=== PATIENT | male | born 1960 | race Caucasian/White ===

== ENCOUNTER 2020-07-27 08:01 | Outpatient (REF) | payer BC, SELFPAY ==
[2020-07-27 11:32] LABS: Hematocrit 46.5 % (42-52); Hemoglobin 16.3 g/dl (14.0-18.0); Mean Corpuscular HGB Conc 35.1 g/dl (31.0-36.0); Mean Corpuscular Hemoglobin 33.4 pg (27.0-33.0); Mean Corpuscular Volume 95.3 fL (80-98); Mean Platelet Volume 10.5 fL (9.4-12.4); Platelet Count 189 X10*3/uL (160-400); Red Blood Count 4.88 X10*6/uL (4.60-5.80); White Blood Count 4.8 X10*3/uL (4.8-10.8)
[2020-07-27 12:00] LABS: Alanine Aminotransferase 31 U/L (0-40); Alkaline Phosphatase 91 U/L (39-117); Anion Gap 15 (12-20); Aspartate Amino Transferase 19 U/L (5-37); Bilirubin Total 1.4 mg/dL (0.0-1.0); Blood Urea Nitrogen 18 mg/dL (9-16); Carbon Dioxide 26 mmol/L (22-29); Chloride 102 mmol/L (96-108); Cholesterol 136 mg/dL; Estimated Glomerular Filt Rate > 60; Glucose Fasting 104 mg/dL (60-99); HDL Cholesterol 35 mg/dL; LDL Cholesterol Calculated 72 mg/dl; Potassium 4.1 mmol/L (3.3-5.1); Sodium 139 mmol/L (135-145); Total Protein 7.7 g/dL (6.5-8.0); Triglycerides 149 mg/dL
[2020-07-27 12:21] LABS: Prostate Specific Antigen 0.54 ng/mL (<0.05-4.0)
[2020-07-30 08:03] LABS: ~HepC Num1 0.07 S/CO (0.00-0.79); ~Hepatitis C Antibody Nonreactive (Nonreactive)
== END 2020-07-27 08:02 | disposition home or self-care (01) ==
LOC: HO.MANLDS 08:01
PROVIDERS: PCP Internal Medicine; Visit Provider Internal Medicine
DX: Z12.5 Encounter for screening for malignant neoplasm of prostate (principal); Z01.84 Encounter for antibody response examination; I10 Essential (primary) hypertension
CPT/HCPCS: 36415; 80053; 80061; 84153; 85027; 86803

== ENCOUNTER 2021-10-01 08:47 | Outpatient (REF) | payer BC, SELFPAY ==
[2021-10-01 11:34] LABS: MANUAL DIFF FLAG NO
[2021-10-01 12:03] LABS: Basophils Percent Auto 0.4 % (0-2); Eosinophils Percent Auto 0.2 % (0-4); Hematocrit 43.5 % (42.0-52.0); Hemoglobin 15.3 g/dl (14.0-18.0); Imm Gran Abs Auto 0.04 X10*3/uL (0.00-0.03); Imm Gran Pct Auto 0.9 % (0.0-0.4); Lymphocytes Absolute Auto 1.9 X10*3/uL (1.2-4.9); Lymphocytes Percent Auto 40.5 % (20-40); Mean Corpuscular HGB Conc 35.2 g/dl (31.0-36.0); Mean Corpuscular Hemoglobin 33.3 pg (27.0-33.0); Mean Corpuscular Volume 94.8 fL (80.0-98.0); Mean Platelet Volume 10.7 fL (9.4-12.4); Monocytes Absolute Auto 0.6 X10*3/uL (0.1-1.2); Monocytes Percent Auto 13.4 % (2-11); Neutrophils Absolute Auto 2.1 x10*3/uL (2.0-8.3); Neutrophils Percent Auto 44.6 % (45-73); Platelet Count 177 X10*3/uL (160-400); Red Blood Count 4.59 X10*6/uL (4.60-5.80); Red Cell Distribution Width 12.5 % (11.0-16.0); White Blood Count 4.6 X10*3/uL (4.8-10.8)
[2021-10-01 12:17] LABS: Alanine Aminotransferase 33 U/L (0-40); Albumin Level 4.7 g/dL (3.5-5.0); Alkaline Phosphatase 87 U/L (39-117); Anion Gap 13 (12-20); Aspartate Amino Transferase 20 U/L (5-37); Bilirubin Total 1.3 mg/dL (0.0-1.0); Blood Urea Nitrogen 15 mg/dL (9-16); Calcium 9.5 mg/dL (8.4-10.2); Carbon Dioxide 28 mmol/L (22-29); Chloride 103 mmol/L (96-108); Cholesterol 136 mg/dL; Estimated Glomerular Filt Rate > 60; Glucose Random 113 mg/dL (60-115); HDL Cholesterol 33 mg/dL; LDL Cholesterol Calculated 65 mg/dl; Sodium 140 mmol/L (135-145); Total Protein 7.4 g/dL (6.5-8.0); Triglycerides 194 mg/dL
[2021-10-01 12:31] LABS: Prostate Specific Antigen 0.41 ng/mL (<0.05-4.0); Vitamin D 25-OH Total 21.1 ng/mL (>30)
== END 2021-10-01 08:48 | disposition home or self-care (01) ==
LOC: HO.MANLDS 08:47
PROVIDERS: Visit Provider Internal Medicine
DX: I10 Essential (primary) hypertension (principal); Z12.5 Encounter for screening for malignant neoplasm of prostate
CPT/HCPCS: 36415; 80053; 80061; 82306; 84153; 85025

== ENCOUNTER 2024-05-13 11:34 | Outpatient (REF) | payer BC, SELFPAY ==
--- OUTSIDE RECORDS SUMMARY | 2024-05-13 12:36 | XMS_ITS | Data Portability ---
Author Organization [facility] Home Service Address [address] [place] [address] Assessment Encounter Date Assessment Date Assessment LastModified by Organization Details LastModified Time 02/17/2022 02/17/2022 [id number] [place] [id number] (RETAIL DISTRICT MANAGER) MDM MODERATE MUST MEET 2 OUT OF 3 ELEMENTS: PROBLEMS, DATA OR RISK ELEMENT 1: PROBLEMS ADDRESSED 1 OR MORE CHRONIC ILLNESS WITH EXACERBATION OR 2 OR MORE STABLE CHRONIC ILLNESSES OR 1 UNDIAGNOSED NEW PROBLEM OR 1 ACUTE ILLNESS W/SYMPTOMS OR 1 ACUTE COMPLICATED INJURY ELEMENT 2: DATA MUST MEET 1 OF 3 CATEGORIES CATEGORY 1: REVIEW OF PRIOR EXTERNAL NOTES, REVIEW OF RESULTS, ORDERING OF EACH TEST, ASSESSMENT REQUIRING INDEPENDENT HISTORIAN OR CATEGORY 2: INDEPENDENT INTERPRETATION OF TESTS BY ANOTHER PHYSICIAN OR SPECIALIST OR CATEGORY 3: DISCUSSION OF MGT OR TEST INTERPRETATION W/EXTERNAL PHYSICIAN OR SPECIALIST ELEMENT 3: RISK RISK OF COMPLICATIONS AND/OR MORBIDITY OR MORTALITY OF PATIENT MANAGEMENT PROVIDER MUST THOROUGHLY DOCUMENT EACH ELEMENT THAT IS COVERED Not available 02/17/2022 10:28:45 08/06/2022 08/06/2022 [id number] [place] [id number] (RETAIL DISTRICT MANAGER) : MDM LOW MUST MEET 2 OF 3 ELEMENTS: PROBLEMS, DATA OR RISK ELEMENT 1: PROBLEMS ADDRESSED (LOW): 2 OR MORE SELF-LIMITED OR MINOR PROBLEMS OR 1 STABLE CHRONIC ILLNESS OR 1 ACUTE UNCOMPLICATED ILLNESS OR INJURY ELEMENT 2: DATA TO BE REVISED AND ANALYZED (LOW) MUST MEET 1 OF 2 CATEGORIES: CATEGORY 1. REVIEW OF PRIOR EXTERNAL NOTES/RESULTS, ORDERING OF TEST(S) CATEGORY 2. ASSESSMENT REQUIRING INDEPENDENT HISTORIAN(S) INCLUDE WHO THE HISTORIAN IS AND RELATION TO PT AND WHY PT IS UNABLE TO GIVE COMPLETE HISTORY ELEMENT 3: RISK (LOW) RISK OF COMPLICATIONS AND/OR MORBIDITY OR MORTALITY OF PATIENT MANAGEMENT PROVIDER MUST THOROUGHLY DOCUMENT ALL OF THE ELEMENTS COVERED Not available 08/06/2022 09:35:13 02/23/2023 02/23/2023 [id number] [place] [id number] (RETAIL DISTRICT MANAGER) : MDM LOW MUST MEET 2 OF 3 ELEMENTS: PROBLEMS, DATA OR RISK ELEMENT 1: PROBLEMS ADDRESSED (LOW): 2 OR MORE SELF-LIMITED OR MINOR PROBLEMS OR 1 STABLE CHRONIC ILLNESS OR 1 ACUTE UNCOMPLICATED ILLNESS OR INJURY ELEMENT 2: DATA TO BE REVISED AND ANALYZED (LOW) MUST MEET 1 OF 2 CATEGORIES: CATEGORY 1. REVIEW OF PRIOR EXTERNAL NOTES/RESULTS, ORDERING OF TEST(S) CATEGORY 2. ASSESSMENT REQUIRING INDEPENDENT HISTORIAN(S) INCLUDE WHO THE HISTORIAN IS AND RELATION TO PT AND WHY PT IS UNABLE TO GIVE COMPLETE HISTORY ELEMENT 3: RISK (LOW) RISK OF COMPLICATIONS AND/OR MORBIDITY OR MORTALITY OF PATIENT MANAGEMENT PROVIDER MUST THOROUGHLY DOCUMENT ALL OF THE ELEMENTS COVERED Not available 02/23/2023 10:04:24 09/14/2023 09/14/2023 [id number] [place] [id number] (RETAIL DISTRICT MANAGER) MDM MODERATE MUST MEET 2 OUT OF 3 ELEMENTS: PROBLEMS, DATA OR RISK ELEMENT 1: PROBLEMS ADDRESSED 1 OR MORE CHRONIC ILLNESS WITH EXACERBATION OR 2 OR MORE STABLE CHRONIC ILLNESSES OR 1 UNDIAGNOSED NEW PROBLEM OR 1 ACUTE ILLNESS W/SYMPTOMS OR 1 ACUTE COMPLICATED INJURY ELEMENT 2: DATA MUST MEET 1 OF 3 CATEGORIES CATEGORY 1: REVIEW OF PRIOR EXTERNAL NOTES, REVIEW OF RESULTS, ORDERING OF EACH TEST, ASSESSMENT REQUIRING INDEPENDENT HISTORIAN OR CATEGORY 2: INDEPENDENT INTERPRETATION OF TESTS BY ANOTHER PHYSICIAN OR SPECIALIST OR CATEGORY 3: DISCUSSION OF MGT OR TEST INTERPRETATION W/EXTERNAL PHYSICIAN OR SPECIALIST ELEMENT 3: RISK RISK OF COMPLICATIONS AND/OR MORBIDITY OR MORTALITY OF PATIENT MANAGEMENT PROVIDER MUST THOROUGHLY DOCUMENT EACH ELEMENT THAT IS COVERED Not available 09/14/2023 10:26:23 05/13/2024 05/13/2024 [id number] [place] [id number] (RETAIL DISTRICT MANAGER) MDM HIGH MUST MEET 2 OUT OF 3 ELEMENTS: PROBLEMS, DATA OR RISK ELEMENT 1: PROBLEMS 1 OR MORE CHRONIC ILLNESS W/SEVERE EXACERBATION, PROGRESSION MAY REQUIRE HOSPITAL LEVEL CARE OR 1 ACUTE OR CHRONIC ILLNESS OR INJURY THAT POSES A THREAT TO LIFE OR BODILY FUNCTION ELEMENT 2: DATA: MUST MEET 2 OF 3 CATEGORIES CATEGORY 1 REVIEW OF PRIOR EXTERNAL NOTES REVIEW OF THE RESULTS ORDERING OF EACH TEST ASSESSMENT REQUIRING INDEPENDENT HISTORIAN(S) CATEGORY 2: INDEPENDENT INTERPRETATION OF TESTS BY ANOTHER PROVIDER/SPECIALI ST CATEGORY 3: DISCUSSION OF MGT OR TEST INTERPRETATION W/EXTERNAL PHYSICIAN/SPECIAL IST ELEMENT 3: RISK HIGH RISK OF MORBIDITY FROM ADDITIONAL DIAGNOSTIC TESTING OR TREATMENT PROVIDER MUST THOROUGHLY DOCUMENT EACH ELEMENT THAT IS COVERED The patient presented to their appointment today for multiple concerns requiring moderate to high-level decision making and took over 40-45 minutes for an adequate and appropriate history, exam, assessment and treatment plan. This appointment was done with an established patient. Not available 05/13/2024 11:27:15 Plan of Treatment Reminders Order Date Submit Date Provider Last Modified By Organization Details Last Modified Time Details Appointments FOLLOW UP 15 2024 10:45A M DR MAY Not available Not available Not available MEDICARE ANNUAL WELLNESS 2024 09:00A M DR MAY Not available Not available Not available Lab lipid panel, blood 2021 022 [facility], [address] [place] [address], [id number], 02/17/2022 10:35:20 CMP, serum or plasma 2023 024 [facility], [address] [place] [address], [id number], 09/14/2023 10:33:22 CBC 2023 024 [facility], [address] [place] [address], [id number], 09/14/2023 10:33:23 PSA, serum or plasma 2023 024 [facility], [address] [place] [address], [id number], 11/27/2023 14:03:30 lipid panel, blood 2023 024 [facility], [address] [place] [address], [id number], 11/27/2023 15:24:32 HbA1c (hemoglob in A1c), blood 2024 025 [facility], [address] [place] [address], [id number], 05/13/2024 11:29:01 Referral None recorded. Procedures None recorded. Surgeries None recorded. Imaging None recorded. Medication Orders doxycycli ne hyclate 100 mg tablet 2021 022 [email or web address] #08368, [address], [place], [id number], 02/23/2023 09:52:31 atenolol 50 mg tablet [address] [facility]16001, [address], [place], [id number], 07/07/2023 09:23:58 atorvasta tin 40 mg tablet 2021 022 [facility] #95546, [address], [place], [id number], 02/17/2022 10:36:28 lisinopri l 40 mg tablet 2021 022 [facility] [employer] [facility] #98167, [address], [place], [id number], 02/17/2022 10:36:29 sildenafi l 100 mg tablet 2022 023 [facility] #31715, [address], [place], [id number], 08/06/2022 09:40:03 atenolol 50 mg tablet [address] [facility] #56741, [address], [place], [id number], 07/07/2023 09:23:58 atorvasta tin 40 mg tablet 2022 023 [facility] #22037, [address], [place], [id number], 08/06/2022 09:40:03 lisinopri l 40 mg tablet 2022 023 [facility] [employer] [facility] #23251, [address], [place], [id number], 08/06/2022 09:40:02 alprazola m 0.5 mg tablet 2022 023 [facility] #68154, [address], [place], [id number], 08/06/2022 09:40:04 losartan 25 mg tablet 2024 025 [facility] [employer] [facility] #14244, [address], [place], [id number], 05/13/2024 11:27:50 lorazepam 0.5 mg tablet 2024 025 [facility] [employer] [facility] #81517, [address], [place], [id number], 05/13/2024 11:27:50 Patient TargetsNo targets recorded. Patient Instructions Encounter Date Encounter Id Patient Instructions Last Modified By Organization Details Last Modified Time 02/17/2022 [id number] tick bite: care instructions Not available 02/17/2022 10:37:08 09/14/2023 [id number] premature heartbeat: care instructions Not available 09/14/2023 10:32:03 05/13/2024 [id number] learning about high blood sugar Not available 05/13/2024 11:27:45 premature heartbeat: care instructions Not available 05/13/2024 11:27:45 Reason for Referral None Reported. Results Created Date Observation Date Name Description Value Unit Range Abnormal Flag Note LastModifiedBy Organization Detail LastModifiedTime Result Notes None recorded. Problems Name Problem SNOMED Code Status Onset Date Resolution Date Notes Provider Name and Address Organization Details Recorded Time Jhoan romero [facility] [id number] Active 2017 Not Available [facility] 02:59:49 Palpation Active 2020 Not Available [employer] 02:59:49 Stress and adjustment reaction 372226443 Active 2021 Yunior May, DO [address] [place] [address], [phone], [facility] 2 11:27:18 Primary erectile dysfunctio n 320220235 Active 2021 Yunior May, DO [address] [place] [address], [phone], [facility] 2 11:31:52 Atrial dilatation 04243121 Active 2021 Yunior May DO [address] [place] [address], [address], [facility] 2 10:30:41 Acute bronchitis 69381296 Active 2023 HOLLI LANDON [address] [place] [address], [address], [facility] 4 16:45:27 Ventricula r premature complex 479068002 Active 2023 Yunior May DO [address] [place] [address], [phone], [facility] 4 10:27:57 Gilbert's syndrome 79259028 Active 2024 Yunior May DO [address] [place] [address], [address], [facility] 5 11:20:05 Hyperglyce marge 90501069 Active 2024 Yunior May DO [address] [place] [address], [address], [facility] 5 11:20:28 Hypertensi ve disorder 13162109 Active 2017 Not Available [facility] 02:59:49 Hyperchole sterolemia 73041771 Active 2017 Not Available [facility] 02:59:49 Sinus tachycardi a 30425095 Active 2017 Not Available [facility] 02:59:49 Pyelonephr itis 29376554 Active 2017 Not Available [facility] 1 02:59:49 Diastolic dysfunctio n 0549392 Active 2017 Not Available [facility] 02:59:49 Deep venous thrombosis 735046234 Active 2017 Not Available [facility] 02:59:49 Pulmonary embolism 55419387 Active 2017 Not Available [facility] 02:59:49 Problem Notes None recorded. Medical Equipment None Reported. Allergies No known drug allergies Medications Name Sig Start Date Stop Date Status Note LastModified by Organization Details LastModified Time atorvastati n 40 mg tablet TAKE 1 TABLET BY MOUTH EVERY DAY active Not Available Not Available No t Available cefuroxime axetil 250 mg tablet Take 1 tablet every 12 hours by oral route for 10 days. 01/03 completed Not Available Not Available Not Available labetalol 200 mg tablet TAKE 1 TABLET BY MOUTH TWICE DAILY 05/07 completed Not Available Not Available Not Available clindamycin HCl 300 mg capsule Take 1 capsule every 6 hours by oral route for 10 days. 11/04 completed Not Available Not Available Not Available diltiazem ER 420 mg capsule,24 hr,extended release TAKE 1 CAPSULE BY MOUTH EVERY DAY 01/11 completed Not Available Not Available Not Available sildenafil 50 mg tablet TAKE 1 TABLET BY MOUTH EVERY DAY 11/01 completed Not Available Not Available Not Available azithromyci n 250 mg tablet TAKE 2 TABLETS (500 MG) BY ORAL ROUTE ONCE DAILY FOR 1 DAY THEN 1 TABLET (250 MG) BY ORAL ROUTE ONCE DAILY FOR 4 DAYS 09/13 completed Not Available Not Available Not Available diltiazem CD 180 mg capsule,ext ended release 24 hr Take 1 capsule every day by oral route for 30 days. 05/22 completed Not Available Not Available Not Available ofloxacin 0.3 % eye drops INSTILL 1 DROP IN LEFT EYE FOUR TIMES DAILY DIRECTED 09/13 completed Not Available Not Available Not Available metoprolol tartrate 100 mg tablet TAKE 1 TABLET BY MOUTH THREE TIMES DAILY active Not Available Not Available No t Available atenolol 100 mg tablet Take 1 tablet every day by oral route. 09/13 completed Not Available Not Available Not Available valacyclovi r 1 gram tablet Take 1 tablet 3 times a day by oral route for 7 days. 05/22 completed Not Available Not Available Not Available diltiazem CD 240 mg capsule,ext ended release 24 hr Take 1 capsule every day by oral route for 30 days. 05/22 completed Not Available Not Available Not Available lisinopril 20 mg tablet TAKE 1 TABLET BY MOUTH EVERY DAY 02/17 completed Not Available Not Available Not Available fluorouraci l 5 % topical cream 02/17 completed Not Available Not Available Not Available atenolol 25 mg tablet TAKE 1 TABLET BY MOUTH EVERY DAY 09/27 completed Not Available Not Available Not Available diltiazem CD 360 mg capsule,ext ended release 24 hr TAKE 1 CAPSULE BY MOUTH EVERY DAY 12/21 completed Not Available Not Available Not Available sildenafil 100 mg tablet TAKE 1 TABLET BY MOUTH EVERY DAY active Not Available Not Available No t Available amoxicillin 500 mg tablet Take 1 tablet every 8 hours by oral route. 07/07 completed Not Available Not Available Not Available carvedilol 3.125 mg tablet TAKE 1 TABLET BY MOUTH TWICE DAILY 09/27 completed Not Available Not Available Not Available alprazolam 0.5 mg tablet TAKE 1 TABLET BY MOUTH TWICE DAILY NEEDED active Not Available Not Available No t Available lorazepam 0.5 mg tablet TAKE 1 TABLET BY MOUTH THREE TIMES DAILY FOR 10 DAYS NEEDED 2024 active Not Available Not Available Not Avai lable diltiazem CD 300 mg capsule,ext ended release 24 hr TAKE 1 CAPSULE BY MOUTH EVERY DAY 08/03 completed Not Available Not Available Not Available benzonatate 100 mg capsule active Not Available Not Available Not Available losartan 25 mg tablet Take 1 tablet every day by oral route for 30 days. 2024 active Not Available Not Available Not Avai lable flecainide 100 mg tablet TAKE 1 TABLET BY MOUTH EVERY 12 HOURS active Not Available Not Available No t Available metoprolol tartrate 50 mg tablet TAKE 1 TABLET BY MOUTH TWICE DAILY 09/27 completed Not Available Not Available Not Available aspirin 81 mg chewable tablet Chew 1 tablet every day by oral route. active OTC Not Available Not Available No t Available mupirocin 2 % topical ointment 01/03 completed Not Available Not Available Not Available methylpredn isolone 4 mg tablets in a dose pack FOLLOW PACKAGE DIRECTION S 09/13 completed Not Available Not Available Not Available albuterol sulfate HFA 90 mcg/actuati on aerosol inhaler INHALE 2 PUFFS INTO THE LUNGS EVERY 4 HOURS NEEDED FOR WHEEZING active Not Available Not Available No t Available ketoconazol e 2 % topical cream APPLY THIN LAYER TOPICALLY TO FEET TWICE DAILY DIRECTED active Not Available Not Available No t Available lisinopril 40 mg tablet TAKE 1 TABLET BY MOUTH DAILY active Not Available Not Available No t Available doxycycline hyclate 100 mg tablet TAKE 1 TABLET BY MOUTH TWICE DAILY 02/23 completed Not Available Not Available Not Available atenolol 50 mg tablet TAKE 1 TABLET BY MOUTH DAILY 07/06 completed Not Available Not Available Not Available amoxicillin 875 mg-potassiu m clavulanate 125 mg tablet Take 1 tablet every 12 hours by oral route for 10 days. 12/08 completed Not Available Not Available Not Available tobramycin 0.3 %-dexametha sone 0.1 % eye drops,suspe nsion 12/08 completed Not Available Not Available Not Available Multivitami n 50 Plus Take one tablet every day. active Not Available Not Available No t Available Glucosamine 1500 Complex Twice daily active Not Available Not Available No t Available GaviLyte-G 236 gram-22.74 gram-6.74 gram-5.86 gram oral solution 01/03 completed Not Available Not Available Not Available [facility] with Large Mask USE DIRECTED WITH INHALER active Not Available Not Available No t Available [facility] bid active Not Available Not Available Not Available Fish Oil 1,000 mg (120 mg-180 mg) capsule Take 1 capsule twice a day by oral route. active Not Available Not Available No t Available Afluria (PF) 45 mcg(15 mcg x 3)/0.5 mL intramuscul ar syringe 11/04 completed Not Available Not Available Not Available Fluarix Quad (PF) 60 mcg (15 mcg x 4)/0.5 mL IM syringe 07/07 completed Not Available Not Available Not Available Flucelvax Quad (PF) 60 mcg (15 mcg x 4)/0.5 mL IM syringe 05/22 completed Not Available Not Available Not Available Afluria Qd (36 mos up)(PF)60 mcg (15 mcg x4)/0.5 mL IM syringe ADM 0.5ML IM UTD 05/22 completed Not Available Not Available Not Available Flowflex COVID-19 Antigen Home Test kit TEST DIRECTED TODAY 09/27 completed Not Available Not Available Not Available Vitals Date Recorded Body height Body mass index (BMI) Body weight Heart rate Oxygen saturation Oxygen saturation in Arterial blood by Pulse oximetry Systolic blood pressure Diastolic blood pressure Provider Name and Address Organization Details Last Updated DateTime 2 177.8 cm 35.5 kg/m2 871636. 47 g 77 /min 97 % 97 % 150 mm[Hg] 82 mm[Hg] Yunior May, DO [address] [place], [address] [place] [address] Internal [facility] 2 10:18:05 Date Recorded Body height Body mass index (BMI) Body weight Respiratory rate Heart rate Oxygen saturation Oxygen saturation in Arterial blood by Pulse oximetry Systolic blood pressure Diastolic blood pressure Provider Name and Address Organization Details Last Updated DateTime 3 177.8 cm 35.6 kg/m2 406466. 91 g 136 /min 74 /min 95 % 95 % 136 mm[Hg] 70 mm[Hg] Cesia Deutsch [facility] 3 09:04:23 Date Recorded Body height Body mass index (BMI) Body weight Heart rate Oxygen saturation Oxygen saturation in Arterial blood by Pulse oximetry Systolic blood pressure Diastolic blood pressure Provider Name and Address Organization Details Last Updated DateTime 3 177.8 cm 35.9 kg/m2 904290. 09 g 70 /min 96 % 96 % 138 mm[Hg] 72 mm[Hg] Vibha Duran [facility] 3 09:54:22 Date Recorded Body height Body mass index (BMI) Body weight Heart rate Oxygen saturation Oxygen saturation in Arterial blood by Pulse oximetry Systolic blood pressure Diastolic blood pressure Provider Name and Address Organization Details Last Updated DateTime 4 177.8 cm 35.5 kg/m2 912698. 11 g 63 /min 95 % 95 % 148 mm[Hg] 88 mm[Hg] Mireya Milan [facility] 4 10:05:16 Date Recorded Body height Body mass index (BMI) Body weight Heart rate Oxygen saturation Oxygen saturation in Arterial blood by Pulse oximetry Systolic blood pressure Diastolic blood pressure Provider Name and Address Organization Details Last Updated DateTime 5 177.8 cm 35.4 kg/m2 778485. 32 g 60 /min 97 % 97 % 140 mm[Hg] 80 mm[Hg] Cesia Bournemond [facility] 5 10:44:25 Social History Question Answer Notes LastModified by Organizat ion Details LastModified Time Tobacco Smoking Status Never Smoker Not Available [facility] 02/07/2020 03:36:24 What Was The Date Of Your Most Recent Tobacco Screening? 05/13/2024 [email or web address] Information not available 05/13/2024 Do You Or Have You Ever Used Any Other Forms Of Tobacco Or Nicotine? No [email or web address] Information not available 02/23/2023 Sex: Unknown Functional Status None recorded. Mental Status None recorded. Family History Nothing Reported. Medical History No medical history recorded. Immunizations Vaccine Type Date Status Note Provider Nam e and Address Organization Details Recorded Time Influenza, split virus, quadrivalent, preservative 2 completed Vibha Gencarelle [facility] 02/23/2023 09:49:54 Influenza, split virus, quadrivalent, preservative 8 completed Vibha Gencarelle [facility] 02/23/2023 09:49:54 Influenza, split virus, quadrivalent, preservative 9 completed [facility] 02/23/2023 09:49:54 Influenza, split virus, quadrivalent, preservative 0 completed Vibha Gencarelle [facility] 02/23/2023 09:49:53 COVID-19, mRNA, LNP-S, PF, 30 mcg/0.3 mL dose 1 completed Vibha Gencarelle ely [facility] 02/23/2023 09:49:54 Tdap 1 completed Not Available [facility] 01/12/2021 02:59:49 COVID-19, mRNA, LNP-S, PF, 30 mcg/0.3 mL dose 1 completed Vibha Gencarelle ely [facility] 02/23/2023 09:49:54 Past Encounters Encounter ID Performer Location Encounter Start Date Encounter Closed Date Diagnosis/Indication Diagnosis SNOMED-CT Code Diagnosis ICD10 Code Diagnosis Note [id number] Yunior May [facility] [address] [facility] [address] 08/10/2017 16:11:01 08/11/2017 08:01:12 Hypertensive disorder 94157339 I10 home bp are 130 /70's which is good states exercising daily and eating correctly Hypercholesterolemia 136 64415 E78.00 will need to check cholest in 3 months in nov [id number] Yunior May [facility] [address] [facility],[place] [address] 10/23/2017 09:24:35 10/23/2017 10:29:24 Sialoadenitis 38407103 K11.20 heat sour balls hydration [id number] Yunior May [facility] [address] [facility], [place] [address] 11/04/2017 09:42:58 11/04/2017 13:40:07 Sialoadenitis of the submandibular gland 635572599 K11.20 needs referral to ent and will cont with augmentin Hypertensive disorder 38 964982 I10 home bp are 130 /70's which are still good states exercising daily and eating correctly [id number] Yunior May [facility] [address] [facility] [address],[place] [address] 12/08/2017 16:07:47 12/08/2017 17:02:32 Hypertensive disorder 97323552 I10 bp today is sl elevated but home bp are 130 /70's which are still good states exercising daily and eating correctly still and even in this heat Hypercholesterolemia 136 37586 E78.00 LDL of 85 hdl 36 trig 180 [id number] Jenifer Lema NP, [facility] Internal [facility] [address] [facility] [address] [address] 06/30/2018 09:02:37 06/30/2018 12:15:55 Hypertensive disorder 67010044 I10 Hypercholesterolemia 136 61080 E78.00 Acute left otitis media 345847496 H66.92 Sinus tachycardia 568842 01 R00.0 follow, has appt 07/07/18 [id number] Yunior May [facility] [address] [facility] [address],[place] [address] 07/07/2018 13:35:06 07/07/2018 14:14:30 Serous otitis media 44050282 H65.02 sudafed afrin h2o and cefurox [id number] Yunior May [facility] [address] [facility] [address],[place] [address] 07/14/2018 10:40:42 07/14/2018 11:04:42 Serous otitis media 44557285 H65.02 sudafed afrin h2o and cefurox to be finished in 2 days will have him redo the afrin bid for the next 4 days along with the sudafed [id number] Yunior May [facility] [address] [facility] [address],[place] [address] 01/04/2020 10:41:40 01/04/2020 11:57:46 Essential hypertension 64838846 I10 bps at home are good Anxiety 64133051 F41.9 having episodes of panic very infrequent but can be uncomforta ble will cont lorzaipam [id number] Yunior May [facility] [address] [facility] [address],[place] [address] 05/01/2020 08:39:24 05/01/2020 11:02:33 Hypertensive disorder 24963411 I10 bp today is sl elevated but home bp are 130 /70's which are still good states exercising daily and eating correctly still and even in this heat Sinus tachycardia 058730 01 R00.0 as described above believe all pvc and stress Diastolic dysfunction 35 53322 I51.9 currently being controlled with hsi lisinopril and labetolol Intermitte nt palpitations 828588349 R00.2 has been having as described we will need to increase the dose of his labetolol and then we will have it re eval in a few weeks [id number] Yunior May [facility] Internal Medicine [address] [facility], [place] [address] 05/07/2020 09:27:11 05/07/2020 13:57:27 Hypertensive disorder 04144504 I10 bp today is sl elevated but home bp are 130 /70's which are still good states exercising daily and eating correctly still and even in this heat Sinus tachycardia 433484 01 R00.0 as described above believe all pvc and stress will order monitor as well as change the labetolol to diltiazem we will rechk him after the monitor but we will hear from him later in the week with update Diastolic dysfunction 35 55513 I51.9 currently being controlled with his lisinopril but will add diltiazem at this point [place] the [place] [id number] Yunior May [facility] Internal Medicine [address] [place] [address], [place] [address] 07/02/2020 10:10:04 07/02/2020 10:45:44 Hypertensive disorder 85208386 I10 bp today is sl elevated but home bp are 130 /70's which are still good states exercising daily and eating correctly still and even in this heat Sinus tachycardia 465251 01 R00.0 as described above believe all pvc and stress will order monitor as well as increase the dose of diltiazem or030bj we will rechk him after the monitor but we will hear from him later in the week with update Diastolic dysfunction 35 57756 I51.9 currently being controlled with his lisinopril and diltiazem at this point given the [place] [id number] Yunior May [facility] Internal Medicine [address] [facility], [place] [address] 08/03/2020 11:56:11 08/03/2020 15:32:33 Hypertensive disorder 45042998 I10 has noted irregular heart beat when exercising but is overall about 80% better bp today is sl elevated but home bp are 130 /70's which are still good states exercising daily and eating correctly still and even in this heat Hypercholesterolemia 136 58287 E78.00 LDL of 85 hdl 36 trig 180 [id number] Yunior May [facility] Internal Medicine [address] [facility],[place] [address] 12/26/2020 08:29:12 12/26/2020 09:31:19 Sinus tachycardia 85897893 R00.0 Hypertensive disorder 38 932215 I10 has noted irregular heart beat r bp today is elevated but home bp are 170's which are elevated states exercising daily and eating correctly still and even in this heat is getting these symptomsdi ltiazem has failedstop diltiazem metoprolol 50 [place] [id number] Yunior May [facility] Internal Medicine [address] [place] [address] 01/01/2021 08:11:08 01/01/2021 10:13:11 Hypertensive disorder 88195165 I10 did not tolerated the metoprolol due to bradycardi a very symptomati c Sinus tachycardia 665031 01 R00.0 [id number] Yunior May DO [facility] Internal Medicine [address] [place] [address] 01/22/2021 09:08:46 01/22/2021 13:28:14 Intermittent palpitations 893698310 R00.2 he will be seeing a cardiologi st in couple weeks for considerat ion for ablation procedure Hypertensive disorder 38 827602 I10 doing great with bp and atenololno changes currently [id number] Yunior May [facility] Internal Medicine [address] [facility],[place] [address] 09/27/2021 10:55:04 09/27/2021 12:34:13 Hypertensive disorder 62564574 I10 doing great with bp and atenololno changes currently Hypercholesterolemia 136 73240 E78.00 LDL of 85 hdl 36 trig 180 Diastolic dysfunction 35 01443 I51.9 currently being controlled and no palp with atenolol 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 Primary er ectile dysfunction 333944212 N52.9 [id number] Yunior May [facility] Internal Medicine [address] [facility], [place] [address] 02/17/2022 10:12:46 02/18/2022 08:17:14 Hypertensive disorder 08470912 I10 doing great with bp and atenolol working welll with very scant palpitatio ns occuringno changes currently noted bp at home running 135/ 68 avg Hypercholesterolemia 136 63280 E78.00 LDL of 85 hdl 36 trig 180 Diastolic dysfunction 35 95161 I51.9 currently being controlled and no palp with atenolol Active or passive immunization 692192710 Z23 patient advised he is due for flu shot & shingles Renewal of prescription 679586156 Z76.0 Tick bite 95713762 W57.X XXA [id number] [facility] [address] [facility],[place] [address] 08/06/2022 08:55:56 08/06/2022 15:22:08 Hypertensive disorder 81838584 I10 doing great with bp and atenolol working welll with very scant palpitatio ns occuringno changes currentlyh e us exercising dailynoted bp at home running 135/ 68 avg Renewal of prescription 408543228 Z76.0 Primary er ectile dysfunction 612540541 N52.9 Stress and adjustment reaction 716504263 F43.9 [id number] [facility] [address] [facility],[place] [address] 02/23/2023 09:48:54 02/23/2023 10:10:38 Hypercholesterolemia 97869815 E78.00 LDL of 85 hdl 36 trig 180 Hypertensive disorder 38 859538 I10 doing great with bp and atenolol working welll with very scant palpitatio ns occuringno changes currentlyh e us exercising dailynoted bp at home running 135/ 68 avg Atrial dilatation 675928 03 I51.7 no issues [id number] Yunior May DO [facility] Internal Medicine [address] [facility] [address],[place] [address] 09/14/2023 09:48:54 09/15/2023 11:45:17 Hypertensive disorder 72170377 I10 doing great with bp and atenolol working welll with very scant palpitatio ns occuringno changes currentlyh e us exercising dailynoted bp at home running 135/ 68 avg Hypercholesterolemia 136 01661 E78.00 LDL of 85 hdl 36 trig 180 Depression screening 171 531605 Z13.31 SCREENING NEGATIVE 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 doing well but symptoms are very distractin g an d now at 15% of heart beats and will be getting an ablation by [facility] cardiology november 17 is scheduled [id number] Yunior May [facility] Internal Medicine [address] [facility] [address],[place] [address] 05/13/2024 10:34:17 05/13/2024 11:39:50 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 did not require ablation per cardiol Hyperglycemia 69349410 R 73.9 will check Hypertensive disorder 38 876551 I10 sbp is still elevated we will add losart 25 and he will get exercising and we will look to d/c this Stress and adjustment reaction 136384413 F43.9 Health Concerns Section Related Observation LastModified by Organization Detai ls LastModified Time None Recorded Concern Status LastModified by Organization Details LastModified Time None Recorded Advance Directives Directive None Recorded Payers Encounter Date Sequence Insurance Name Policy Number Policy Knott Covered Member ID Knott Member ID Guarantor Name 02/17/2022 1 [place] [facility] [place] [id number] Alton Wiley [id number] Alton Wiley 08/06/2022 1 [place] [facility] [place] [place] [id number] Alton Wiley [id number] Alton Wiley 02/23/2023 1 [place] [facility] [place] [place] [id number] Alton Wiley [id number] Alton Wiley 09/14/2023 1 [place] [employer] Alton Wiley [id number] Alton Wiley 05/13/2024 1 [place] [facility] G[place]MENT [facility] Alton Wiley [id number] Alton Wiley 05/13/2024 2 [place] [id number] Alton Wiley [id number] Alton Wiley Notes Date Note Type Note Provider Name and Address Organization Details Recorded Time 2 text/htm l here for rechk and is feeling goodrelates that he has no cpno sob bowels goodwalking daily 6/7 daysrelates works outside all dayhas been bitten by ticks and has been embedded more than 24 hrs Yunior May DO [address] [place] [address], [address], [facility] Internal Medicine 02/17/2022 10:37:28 3 text/htm l here for rechk and is feeling well no major issues notedhad gained wgt on a cruise but will get offhis bp is still doing well states that he is feeling well Yunior May DO [address] [place] [address], [address], [facility] Internal Medicine 08/06/2022 13:29:22 3 text/htm l Care Management - HypertensionReported bypatient.Self Care:not under emotional stress Severity:symptoms are improving; does not interfere with daily activities Associated Symptoms:no dizziness; no lightheadedness; no chest pain; no shortness of breath; no palpitations; no edema; no calf muscle cramps; no blurred vision; no confusion; no headaches; no fatigue here for rechk and is still doing great and he is walking dailyno cp no sobhome bps avg 136/68feels better now than he has been 10 yrs ago Yunior May DO [address] [place], [address], [facility] Internal Medicine 02/23/2023 10:10:08 4 text/htm l Care Management - HypertensionReported bypatient.Self Care:not under emotional stress Severity:symptoms are improving; does not interfere with daily activities Associated Symptoms:no dizziness; no lightheadedness; no chest pain; no shortness of breath; no palpitations; no edema; no calf muscle cramps; no blurred vision; no confusion; no headaches; no fatigue relates that he is doing ok and his holter monitor showed PVC s15% of the time and he is scheduled for an ablation due to PVC's excessive while on medication for thisrelates he is very symptomatic from thishome bp are doing ok Yunior May DO [address] [place], [address], [facility] Internal Medicine 09/14/2023 10:34:01 5 text/htm l Care Management - HypertensionReported bypatient.Self Care:not under emotional stress Severity:symptoms are improving; does not interfere with daily activities Associated Symptoms:no dizziness; no lightheadedness; no chest pain; no shortness of breath; no palpitations; no edema; no calf muscle cramps; no blurred vision; no confusion; no headaches; no fatigue her e for 6 mo check uprelates has a colonoscopy coming up as well as dermalso has a skin diver apptcardiol did not do an ablation after re eval and put him on flecanide did not anamika flecanide and place on metoprolol insteaddoing ok except sys bp is elevated Yunior May DO [address] [place], [address], [facility] Internal Medicine 05/13/2024 11:30:16
[2024-05-13 13:57] LABS: Estimated Average Glucose 117 mg/dL; Hemoglobin A1C 148.2359 umol/L; Hemoglobin A1c % 5.7 % (<6.0); Total Hemoglobin (HGBA1C) 3833.2025 umol/L
== END 2024-05-13 11:35 | disposition home or self-care (01) ==
LOC: HO.MANLDS 11:34
PROVIDERS: Visit Provider Internal Medicine
DX: R73.9 Hyperglycemia, unspecified (principal)
CPT/HCPCS: 36415; 83036

== ENCOUNTER 2024-11-30 08:47 | Outpatient (REF) | payer MEDICARE, SELFPAY ==
--- OUTSIDE RECORDS SUMMARY | 2024-11-30 09:17 | XMS_ITS | Encounter Summary ---
Author Organization [facility] Address [address] [place] [address] Phone Care Team Providers Care Marine Painter Name Role Phone DorothyYunior faulkner Chayo UMANA Primary Care Provider [phone] Encounter Details Date Type Department Care Team (Late st Contact Info) Description 05/18/2024 Procedure Pass [facility] Endoscopy Admitting Dept Virtual Department [address] [place] [address] Social History Tobacco Use Types Packs/Day Years Used Date Smoking Tobacco: Never Smokeless Tobacco: Never Alcohol Use Standard Drinks/Week Comments Not Currently 2 (1 standard drink = 0.6 oz pur e alcohol) none for 1 year Education Answer Date Recorded Are you interested in more education? Not on faizan e 08/01/2022 Are you concerned about learning? Not on file 08/01/2022 No 08/01/2022 No 08/01/2022 Digital Access Answer Date Recorded No 08/30/2022 No 08/30/2022 Reliable internet access at home? Not on file 08/30/2022 Device with a working camera? Not on file Intimate Partner Violence Answer Date R ecorded Denied Basic Needs Not on file 05/12/2024 In the past 12 months have y ou been in a relationship with a person who hurts, threatens, or tries to control you? No 05/12/2024 Worried food would run out Not on file 05/12 In the past 12 months have y ou been in a relationship with a person who hurts, threatens, or tries to control you? No 05/12/2024 Sex and Gender Information Value Date Recorded Sex Assigned at Not on file Legal Sex Male 9:50 PM EDT Gender Identity Not on file Sexual Orientation Not on file documented as of this encounter Plan of Treatment Not on file documented as of this encounter Visit Diagnoses Not on filedocumented in this encounter Care Teams Marine Painter Relationship Specialty Start Date End Date Yunior Sanchez DO [email or web address] PCP - General 01/19/17 documented as of this encounter Additional Source Comments The information contained in this document represents components of the legal health record. It is not the complete legal health record.[facility]
--- OUTSIDE RECORDS SUMMARY | 2024-11-30 09:17 | XMS_ITS | Encounter Summary ---
Author Organization [facility] Address [address] [place] [address] [place] [address] Phone Care Team Providers Care Toilet And Laundry Soap Supervisor Name Role Phone Yunior Sanchez DO Primary Care Provider [phone] Yunior Sanchez DO Unavailable Encounter Details Date Type Department Care Team (Late st Contact Info) Description 11/16/2017 Procedure Pass [facility], Ct Scan - [address] [address] Social History Tobacco Use Types Packs/Day Years Used Date Smoking Tobacco: Never Assessed Sex and Gender Information Value Date Recorded Sex Assigned at Not on file Legal Sex Male 9:50 PM EDT Gender Identity Not on file Sexual Orientation Not on file documented as of this encounter Plan of Treatment Not on file documented as of this encounter Visit Diagnoses Not on filedocumented in this encounter Additional Health Concerns Infection Onset Date Last Indicated Resolved Time CoV-Risk 04/28/2024 04/28/2024 05/09/2024 1:24 AM EST documented as of this encounter Care Teams Toilet And Laundry Soap Supervisor Relationship Specialty Start Date End Date Yunior Sanchez DO PCP - General 01/19/17 Yunior Sanchez DO [address] [place] [address] [email or web address] Insurance Assigned Provider 07/11/23 documented as of this encounter Additional Source Comments The information contained in this document represents components of the legal health record. It is not the complete legal health record.[facility]
--- OUTSIDE RECORDS SUMMARY | 2024-11-30 09:17 | XMS_ITS | Encounter Summary ---
Author Organization [facility] Address [address] [place] [address] Phone Care Team Providers Care Documentation Manager Name Role Phone Yunior Sanchez DO Primary Care Provider [phone] Yunior Sanchez DO Unavailable Encounter Details Date Type Department Care Team (Late st Contact Info) Description 05/07/2020 Procedure Pass Non-Invasive Cardiology [address] [place] [address] Social History Tobacco Use Types Packs/Day Years Used Date Smoking Tobacco: Never Smokeless Tobacco: Never Alcohol Use Standard Drinks/Week Comments Yes 2 (1 standard drink = 0.6 oz pur e alcohol) 2 MONTH Sex and Gender Information Value Date Recorded [...] documented as of this encounter Care Teams Documentation Manager Relationship Specialty Start Date End Date Yunior Sanchez DO PCP - General 01/19/17 Yunior Sanchez DO [address] [place] [address] [email or web address] Insurance Assigned Provider 07/11/23 documented as of this encounter Additional Source Comments The information contained in this document represents components of the legal health record. It is not the complete legal health record.[facility]
--- OUTSIDE RECORDS SUMMARY | 2024-11-30 09:17 | XMS_ITS | Clinical Summary ---
Author Organization [facility] Address [address] [place] [address] [place] [address] Phone Care Team Providers Care Software Test And Validation Engineer Name Role Phone DorothyShade faulkner Chayo UMANA Primary Care Provider [phone] Allergies No known active allergies Medications lisinopril (PRINIVIL,ZESTR IL) 20 MG tabletIndicatio ns:hypertension Take 20 mg by mouth daily. Indications: high blood pressure Active atorvastatin (LIPITOR) 20 MG tablet Take 20 mg by mouth daily. Active aspirin 81 MG EC tablet Take 81 mg by mouth daily. Active multivit-min/fe rrous fumarate (MULTI VITAMIN ORAL) Take by mouth daily. Active omega-3 fatty acids-fish oil 340-1,000 mg Cap Take 1 capsule by mouth 2 (two) times a day. Active glucosam/chond/ hyalu/CF borate (MOVE FREE JOINT HEALTH ORAL)Indication s:1 tab 2x a day Take by mouth 2 (two) times a day. Indications: 1 tab 2x a day Active atenolol (TENORMIN) 25 MG tablet Take 25 mg by mouth daily. Active ALPRAZolam (XANAX) 0.5 MG tablet alprazolam 0.5 mg tablet TAKE 1 TABLET BY MOUTH TWICE DAILY NEEDED Active azithromycin (ZITHROMAX Z-MICHELLE) 250 MG tablet 2 tablet on the first day, then 1 tablet daily for 4 days 1 Active cefuroxime (CEFTIN) 250 MG tablet cefuroxime axetil 250 mg tablet Active clindamycin (CLEOCIN) 300 MG capsule clindamycin HCl 300 mg capsule Active dilTIAZem (DILACOR XR) 180 mg 24 hr capsule diltiazem CD 180 mg capsule,extended release 24 hr TAKE 1 CAPSULE BY MOUTH EVERY DAY Active dilTIAZem (TIAZAC) 360 MG 24 hr capsule diltiazem CD 360 mg capsule,extended release 24 hr TAKE 1 CAPSULE BY MOUTH EVERY DAY Active dilTIAZem (DILACOR XR) 240 mg 24 hr capsule diltiazem CD 240 mg capsule,extended release 24 hr TAKE 1 CAPSULE BY MOUTH EVERY DAY Active labetaloL (TRANDATE) 200 MG tablet labetalol 200 mg tablet TAKE 1 TABLET BY MOUTH ONCE DAILY Active LORazepam (ATIVAN) 0.5 MG tablet lorazepam 0.5 mg tablet TAKE 1 TABLET BY MOUTH THREE TIMES DAILY FOR 10 DAYS NEEDED Active simvastatin (ZOCOR) 40 MG tablet Take 40 mg by mouth daily. Active flecainide (TAMBOCOR) 100 MG tablet Take 100 mg by mouth. 4 Active metoprolol tartrate (LOPRESSOR) 100 MG tablet Take 100 mg by mouth 3 (three) times a day. Active sildenafiL (VIAGRA) 100 mg tablet Take 1 tablet by mouth every morning. 4 Active albuterol (PROAIR HFA) 90 mcg/actuation inhaler Inhale 2 puffs into the lungs every 4 (four) hours as needed for wheezing. 18 g 5 Active Additional Information Patient not taking.Reported on 05/12/2024 inhaler spacing device (AEROCHAMBER,BR EATHERITE) Spcr Inhale 1 each into the lungs every 4 (four) hours as needed. 1 each 5 Active benzonatate (TESSALON) 100 MG capsule Take 2 capsules (200 mg total) by mouth 3 (three) times a day as needed for cough. 21 capsule 5 Active Additional Information Patient not taking.Reported on 05/12/2024 lisinopril (PRINIVIL,ZESTR IL) 40 MG tablet Take 40 mg by mouth daily. Active atorvastatin (LIPITOR) 40 MG tablet Take 40 mg by mouth daily. Active losartan potassium (LOSARTAN ORAL) Take by mouth. Active Active Problems No known active problems Immunizations Immunization Administration Dates Next Due COVID-19 (Pre-01/26) Pfizer Vaccine, mRNA, PF 07/05/2020,06/14/2020 INFLUENZA, SPLIT VIRUS, TRIVALENT PF 01/10/2017, 01/23/2016 Influenza High-Dose Trivalen t Preservative Free IM 01/04/2024 Influenza Quadrivalent MDCK Preservative Free IM 02/18/2023,02/16/2019 Influenza Quadrivalent Prese rvative Free IM 02/09/2022,01/04/2021,01/31/2018 Influenza Quadrivalent w/ Preservative IM 01/23/2020,02/16/2019,01/31/2018,2014,03/23/2014 Pneumococcal conjugate PCV20 02/10/2024 RSV Vaccine (monovalent, adjuvanted) 02/28/2023 Tdap 07/28/2020 Zoster recombinant 11/01/2020,08/28/2020 Social History Tobacco Use Types Packs/Day Years Used Date Smoking Tobacco: Never Smokeless Tobacco: Never Tobacco Cessation:Counseling Given: Not Answered Alcohol Use Standard Drinks/Week Comments Not Currently [...] on file Sexual Orientation Not on file Last Filed Vital Signs Vital Sign Reading Time Taken Comments Blood Pressure 105/68 05/18/2024 8:50 AM EST Pulse 69 05/18/2024 8:50 AM EST Temperature 35.8 C (96.5 F) 05/18/2024 8:39 AM EST Respiratory Rate 18 05/18/2024 8:50 AM EST Oxygen Saturation 96% 05/18/2024 8:50 AM EST Inhaled Oxygen Concentration - - Weight 111.1 kg (245 lb) 05/12/2024 9:23 AM EST Height 180.3 cm (5' 11 ) 02/21/2019 11:38 AM EST Body Mass Index 34.17 02/21/2019 11:38 AM EST Plan of Treatment Health Maintenance Due Date Last Done Comments DEPRESSION SCREENING 1970 COLOGUARD 09/10/2003 FIT TEST 09/10/2003 FOBT 09/10/2003 SIGMOIDOSCOPY 09/10/2003 VIRTUAL COLONOSCOPY 09/10/2003 COVID-19 VACCINE ( season) 2024 01/04/2024, 02/18/2023, 02/09/2022, Additional history exists INFLUENZA VACCINE (#1) 2024 , 02/18/2023, 02/09/2022, Additional history exists CREATININE LEVEL 11/26/2024 11/27/2023, 01/11/2021 POTASSIUM LEVEL 11/26/2024 11/27/2023, 01/11/2021 SCREENING FOR DIABETES 11/26/2026 11/27/2023, 2017 LIPID PANEL 11/26/2028 11/27/2023, 09/05, 10/01/2021, Additional history exists Adult Td,Tdap Booster 07/28/2030 07/28/2020 COLONOSCOPY 05/18/2034 05/18/2024, 02/28/2019 COLORECTAL CANCER SCREENING 05/18/2034 HEPATITIS C SCREENING Completed 07/27/2020 ZOSTER VACCINES Completed 11/01/2020, 08/28/2020 RSV VACCINE Completed 02/28/2023 PNEUMOCOCCAL VACCINES (50+ years) Completed 02/10/2024 SMOKING STATUS SCREENING (Once After 26 Yrs) Completed 05/18/2024 HEPATITIS A VACCINES Aged Out No long er eligible based on patient's age to complete this topic HIB VACCINES Aged Out No longer eligi ble based on patient's age to complete this topic MENINGOCOCCAL VACCINES (ACWY) Aged Out No longer eligible based on patient's age to complete this topic MENINGOCOCCAL VACCINES (B) Aged Out N o longer eligible based on patient's age to complete this topic Medical Devices Not on file Procedures Procedure Name Priority Date/Time Associated Diagnosis Comments ENDOSCOPY, COLON 05/18/2024 8:02 AM EST LIPID PANEL Routine 11/27/2023 9:39 AM EDT Essential hypertension, malignant Pure hypercholesterolemia COMPREHENSIVE METABOLIC PANEL Routine 11/27/2023 9:39 AM EDT Essential hypertension, malignant Pure hypercholesterolemia from Last 3 Months or Most Recently Relevant to Health Maintenance Results * ENDOSCOPY, COLON (05/18/2024 8:02 AM EST) Narrative Transcriptions Jerrell Mishra MD - 05/18/2024 8:02 AM EST [facility] Patient Name: Alton Wiley Attending MD:: JERRELL MISHRA MD, , Procedure Date: 05/18/2024 8:02 AM Date of : 1960 Age: 63 Admit Type: Outpatient Gender: Male Room: [facility] Referring MD: SHADE MAY DO Exam Type: Colonoscopy Indications: High risk colon cancer surveillance: Personalhistory of colonic polyps Medications: Monitored Anesthesia Care Procedure: Informed consent was obtained from the patientafter discussion of the indications, limitations, alternatives, benefits, and risks of the procedure. Risks specifically discussed include but are not limited to medication reactions, missed lesions, bleeding, perforation, or the need for emergent surgery. Throughout the procedure, the patient's blood pressure, pulse, end-tidal CO2, and oxygensaturations were monitored continuously. The Olympus adult variable colonoscope [id number] #1 was introduced through the anus and advanced to the cecum, identified by appendiceal orifice andileocecal valve. The colonoscopy was performed without difficulty. The patient tolerated the procedurewell. The quality of the bowel preparation was excellent. The quality of the bowel preparation was evaluated using the BBPS ([place] Bowel Preparation Scale)with scores of: Right Colon = 3, Transverse Colon = 3and Left Colon = 3 (entire mucosa seen well with no residual staining, small fragments of stool oropaque liquid). The total BBPS score equals 9. Anatomical landmarks were photographed. Complications: No immediate complications. Estimated blood loss: Minimal. Findings: The perianal and digital rectal examinations were normal. A 5 mm polyp was found in the sigmoid colon. Thepolyp was sessile. The polyp was removed with a coldsnare. Resection and retrieval were complete. The exam was otherwise normal throughout theexamined colon. Impression: - One 5 mm polyp in the sigmoid colon, removed witha cold snare. Resected and retrieved. Recommendation: - Discharge patient to home. - Await pathology results. - Repeat colonoscopy in 5 years for surveillance. JERRELL MISHRA MD, 05/18/2024 8:37:05 AM This report has been signed electronically. Number of Addenda: 0 Note Initiated On: 05/18/2024 8:02 AM Procedure Code(s): --- Professional --- 91508, Colonoscopy, flexible; with removal of tumor(s), polyp(s), or other lesion(s) by snare technique --- Technical --- 22709, Colonoscopy, flexible; with removal of tumor(s), polyp(s), or other lesion(s) by snare technique Diagnosis Code(s): --- Professional --- Z86.010, Personal history of colonic polyps D12.5, Benign neoplasm of sigmoid colon --- Technical --- Z86.010, Personal history of colonic polyps D12.5, Benign neoplasm of sigmoid colon CPT copyright 2021 [employer]. All rights reserved. The codes documented in this report are preliminary and upon barber stylist reviewmay be revised to meet current compliance requirements. Procedure Date: 05/18/2024 8:02:[address] [place] [address] us Shade A Bigda DO GI PROCEDURE ORDERABLES Final Re sult * (ABNORMAL) Comprehensive metabolic panel (11/27/2023 9:39 AM EDT) SODIUM 140 133 - 146 mmol/L [facility] POTASSIUM 4.2 3.3 - 5.1 mmol/L [facility] Comment:Specimen slightly he molyzed, result may be falsely elevated. CHLORIDE 100 96 - 108 mmol/L [facility] CO2 28 21 - 35 mmol/L [facility] BUN 17 6 - 19 mg/dL [facility] CREATININE 0.80 0.5 - 1.5 mg/dL [facility] GLUCOSE 111(H) 70 - 99 mg/dL [facility] ALBUMIN 4.6 3.9 - 4.8 g/dL [facility] TOTAL PROTEIN 7.8 6.5 - 8.0 g/dL [facility] CALCIUM 9.7 8.4 - 10.3 mg/dL [facility] ALKALINE PHOSPHATASE 96 39 - 117 U/L [facility] TOTAL BILIRUBIN 1.7(H) 0.0 - 1.2 mg/dL [facility] AST 24 0 - 37 U/L [facility] ALT 28 0 - 40 U/L [facility] GLOBULIN 3.2 1 - 4.8 g/dL [facility] EGFR 98 >59 mL/min/1.7 3m2 [facility] Comment:Estimated glomerular filtration rate calculated using the CKD-EPI refit equation. ANION GAP 16 10 - 20 mmol/L [facility] Blood 11/27/2023 9:39 AM EDT 11/27/2023 9:44 AM EDT us Shade A Bigda DO LAB BLOOD ORDERABLES Final Resul t Performing Organization Address City/[facility]/ZIP Co de Phone Number [address] [address] * Lipid panel (11/27/2023 9:39 AM EDT) HDL 31 mg/dL [facility] Comment: Interpretation <40 mg/dL: Low HDL cholesterol (major risk factor for CHD) Greater than or equal to 60 mg/dL: High HDL cholesterol ( negative risk factor for CHD) HDL - cholesterol is affected by a number of factors, e.g. smoking, excerise, hormones, sex and age. CHOLESTEROL 128 0 - 240 mg/dL [facility] TRIGLYCERIDES 148 30 - 160 mg/dL [facility] LDL 67 50 - 129 mg/dL [facility] Comment: LDL levels in terms of risk for coronary heart disease: <100 mg/dL: Optimal 100-129 mg/dL: Near or above optimal 130-159 mg/dL: Borderline high 160-189 mg/dL: High >190 mg/dL: Very High CARDIAC RISK RATIO 4.1 3.4 - 5.0 C [facility] Blood 11/27/2023 9:39 AM EDT 11/27/2023 9:43 AM EDT us Shade A Bigda DO LAB BLOOD ORDERABLES Final Resul t Performing Organization Address City/[facility]/ZIP Co de Phone Number [address] [phone] from Last 3 Months or Most Recently Relevant to Health Maintenance Insurance [employer] MEDEX SUPPLEMENT MEDICARE PART A & B [employer] MEDEX SUPPLEMENT MEDICARE PART A & B [employer] MEDEX SUPPLEMENT [employer] MEDEX SUPPLEMENT [employer] MEDEX SUPPLEMENT MEDICARE PART A & B [employer] MEDEX SUPPLEMENT [employer] MEDEX SUPPLEMENT MEDICARE PART A & B [employer] MEDEX SUPPLEMENT MEDICARE PART A & B [employer] MEDEX SUPPLEMENT MEDICARE PART A & B Care Teams Software Test And Validation Engineer Relationship Specialty Start Date End Date Dorothylucie Shade DO Chayo [email or web address] PCP - General 01/19/17 Additional Source Comments The information contained in this document represents components of the legal health record. It is not the complete legal health record.[facility]
--- OUTSIDE RECORDS SUMMARY | 2024-11-30 09:17 | XMS_ITS | Encounter Summary ---
Author Organization [facility] Address [address] [place] [address] Phone Care Team Providers Care Head Machine Feeder Name Role Phone DorothyYunior faulkner Primary Care Provider [phone] Dorothylucie Yunior Chayo Unavailable Reason for Referral * MRI/CAT Scan - Closed Specialty Diagnoses / Procedures Referred By Natalie kuhn Referred To Contact Radiology Diagnoses Acute sialoadenitis Procedures CT Neck Cj Walden MD [email or web address] En[address] MARGARITO [address] [place] [address] Phone: tel: fax: [email or web address] Referral ID Status Reason Start Date Expiration Date Visits Re quested Visits Authorized [id number] Closed 11/13/2017 01/11/2018 1 1 Encounter Details Date Type Department Care Team (Late st Contact Info) Description 11/16/2017 Ancillary Orders Virtual Department [address] [place] [address] Cj Walden MD [address], [address] [place] [address] [email or web address] Acute sialoadenitis Social History Tobacco Use Types Packs/Day Years Used Date Smoking Tobacco: Never Assessed Sex and Gender Information Value Date Recorded Sex Assigned at Not on file Legal Sex Male 9:50 PM EDT Gender Identity Not on file Sexual Orientation Not on file documented as of this encounter Plan of Treatment Not on file documented as of this encounter Results * CT NECK SOFT TISSUE WITH CONTRAST (11/26/2017 10:41 AM EDT) Anatomical Region Laterality Modality Neck Computed Tomogra phy 11/26/2017 10:4 8 AM EDT Impressions 11/26/2017 10:57 AM EDT Enlarged right submandibular gland with inflammatory infiltration of the adjacent fat and subcutaneous tissues and adjacent lymphadenopathy. No discrete abscess or obstructing calculus are identified. The appearance is consistent with sialoadenitis but given the the heterogeneous enhancement a small parenchymal mass cannot be completely excluded and if this does not resolve in a clinically appropriate matter follow-up CT or MR could be considered. TOTAL CTDIvol: 11.80 mGy POS - [id number] Narrative 11/26/2017 10:57 AM EDT COMPARISON: None TECHNIQUE: Helical scanning was performed from the skull base through the thoracic inlet during rapid intravenous administration of contrast material. Sagittal and coronal reformats were generated and reviewed. Automated exposure control utilized. The study was performed following placement of a skin marker over the region of palpable abnormality in the right submental region as delineated by the patient. FINDINGS: The skin marker overlies the right submandibular gland which is enlarged relative to left, measuring approximately 2.2 x 2.9 cm in transverse dimensions versus 2.3 x 1.6 cm. There is heterogeneous enhancement in the caudal and lateral aspects of the gland with streaky infiltration of the overlying skin and subcutaneous fat and with very minimal thickening of the platysmas muscle. No encapsulated abscess identified. No salivary calculus demonstrated. Parotid glands are unremarkable in appearance. No laryngeal or thyroid masses are identified. There is a 1.5 cm long axis pre jugular node on the right slightly above the level of the submandibular gland. No other enlarged lymph nodes are detected within the neck or supraclavicular regions. Prevertebral soft tissues are not thickened. No evidence of vascular occlusion. Visualized intracranial contents are unremarkable. Mastoid air cells and visualized paranasal sinuses are clear. Degenerative disc changes are present at the C5-6 and C6-7 levels with additional degenerative change and a small corticated bony density, possibly related to old fracture, present at the atlantodens articulation. No acute traumatic or destructive skeletal lesions are identified. Procedure Note Codey Harrison MD - 11/26/2017 COMPARISON: None TECHNIQUE: Helical scanning was performed from the skull base through thethoracic inlet during rapid intravenous administration of contrastmaterial. Sagittal and coronal reformats were generated and reviewed.Automated exposure control utilized. The study was performed followingplacement of a skin marker over the region of palpable abnormality in theright submental region as delineated by the patient. FINDINGS: The skin marker overlies the right submandibular gland which is enlargedrelative to left, measuring approximately 2.2 x 2.9 cm in transversedimensions versus 2.3 x 1.6 cm. There is heterogeneous enhancement in thecaudal and lateral aspects of the gland with streaky infiltration of theoverlying skin and subcutaneous fat and with very minimal thickening ofthe platysmas muscle. No encapsulated abscess identified. No salivarycalculus demonstrated. Parotid glands are unremarkable in appearance. No laryngeal or thyroidmasses are identified. There is a 1.5 cm long axis pre jugular node onthe right slightly above the level of the submandibular gland. No otherenlarged lymph nodes are detected within the neck or supraclavicularregions. Prevertebral soft tissues are not thickened. No evidence ofvascular occlusion. Visualized intracranial contents are unremarkable. Mastoid air cells andvisualized paranasal sinuses are clear. Degenerative disc changes arepresent at the C5-6 and C6-7 levels with additional degenerative changeand a small corticated bony density, possibly related to old fracture,present at the atlantodens articulation. No acute traumatic ordestructive skeletal lesions are identified. IMPRESSION: Enlarged right submandibular gland with inflammatory infiltration of theadjacent fat and subcutaneous tissues and adjacent lymphadenopathy. Nodiscrete abscess or obstructing calculus are identified. The appearanceis consistent with sialoadenitis but given the the heterogeneousenhancement a small parenchymal mass cannot be completely excluded and ifthis does not resolve in a clinically appropriate matter follow-up CT orMR could be considered. TOTAL CTDIvol: 11.80 mGy POS - [id number] us Cj Walden MD IMG CT XSPECIALTY ORDERAB LES Final Result documented in this encounter Visit Diagnoses Diagnosis Acute sialoadenitis Acute sialoadenitis documented in this encounter Additional Health Concerns Infection Onset Date Last Indicated Resolved Time CoV-Risk 04/28/2024 04/28/2024 05/09/2024 1:24 AM EST documented as of this encounter Care Teams Head Machine Feeder Relationship Specialty Start Date End Date Yunior Sanchez DO PCP - General 01/19/17 Yunior Sanchez DO [address] [place] [address] Insurance Assigned Provider 07/11/23 documented as of this encounter Additional Source Comments The information contained in this document represents components of the legal health record. It is not the complete legal health record.[facility]
--- OUTSIDE RECORDS SUMMARY | 2024-11-30 09:17 | XMS_ITS | Encounter Summary ---
Author Organization [facility] Address [address] [place] [phone] Phone Care Team Providers Care Bit Sander Name Role Phone Yunior Sanchez DO Primary Care Provider [phone] Yunior Sanchez DO Unavailable Encounter Details Date Type Department Care Team ([facility] st Contact Info) Description 02/28/2019 Procedure Pass [facility] Endoscopy Admitting Dept Virtual Department [address] [place] [phone] Social History Tobacco Use Types Packs/Day Years [...] documented as of this encounter Care Teams Bit Sander Relationship Specialty Start Date End Date Yunior Sanchez DO PCP - General 01/19/17 Yunior Sanchez DO [address] [place] [phone] [email or web address] Insurance Assigned Provider 07/11/23 documented as of this encounter Additional Source Comments The information contained in this document represents components of the legal health record. It is not the complete legal health record.[facility]
[2024-11-30 09:18] LABS: MANUAL DIFF FLAG NO
[2024-11-30 10:50] LABS: Hematocrit 43.6 % (42.0-52.0); Hemoglobin 15.3 g/dl (14.0-18.0); Imm Gran Abs Auto 0.04 X10*3/uL (0.00-0.03); Imm Gran Pct Auto 0.7 % (0.0-0.4); Lymphocytes Absolute Auto 2.5 X10*3/uL (1.2-4.9); Mean Corpuscular HGB Conc 35.1 g/dl (31.0-36.0); Mean Corpuscular Hemoglobin 33.6 pg (27.0-33.0); Mean Corpuscular Volume 95.8 fL (80.0-98.0); NRBC Abs Auto 0.000 X10*3/uL (0.0-0.012); NRBC Pct Auto 0.0 /100WBC (0.0-0.2); Platelet Count 185 X10*3/uL (160-400); Red Blood Count 4.55 X10*6/uL (4.60-5.80); White Blood Count 6.0 X10*3/uL (4.8-10.8)
[2024-11-30 11:02] LABS: Hemoglobin A1C 159.0256 umol/L; Total Hemoglobin (HGBA1C) 3971.5290 umol/L
[2024-11-30 11:30] LABS: Alanine Aminotransferase 35 U/L (0-40); Albumin Level 4.8 g/dL (3.5-5.0); Alkaline Phosphatase 89 U/L (39-117); Anion Gap 12 (12-20); Aspartate Amino Transferase 27 U/L (5-37); Blood Urea Nitrogen 16 mg/dL (9-16); Calcium 9.7 mg/dL (8.4-10.2); Carbon Dioxide 30 mmol/L (22-29); Chloride 102 mmol/L (96-108); Cholesterol 117 mg/dL (<200); Estimated Glomerular Filt Rate > 60; HDL Cholesterol 27 mg/dL (>40); Potassium 4.2 mmol/L (3.3-5.1); Sodium 140 mmol/L (135-145); Total Protein 7.6 g/dL (6.5-8.0); Triglycerides 200 mg/dL (<150)
[2024-11-30 11:33] LABS: Prostate Specific Antigen 0.61 ng/mL (<0.05-4.0)
== END 2024-11-30 08:48 | disposition home or self-care (01) ==
LOC: HO.LAB 08:47
PROVIDERS: PCP Internal Medicine; Visit Provider Internal Medicine
DX: Z00.00 Encounter for general adult medical examination without abnormal findings (principal); Z13.6 Encounter for screening for cardiovascular disorders; Z12.11 Encounter for screening for malignant neoplasm of colon; Z12.5 Encounter for screening for malignant neoplasm of prostate; I10 Essential (primary) hypertension; R73.9 Hyperglycemia, unspecified
CPT/HCPCS: 36415; 80053; 80061; 83036; 84153; 85025